=== PATIENT | male | born 1950 | race Caucasian/White ===

== ENCOUNTER 2018-05-21 05:54 | Day surgery (SDC) | payer OTHER, BC ==
[2018-05-21] MEDS ORDERED: NA CHLORIDE 0.9% 500 ML ONE (06:20)
[2018-05-21 06:29] LABS: Absolute Lymphocytes (CBC) 1.7 K/uL (0.7-4.9); Absolute Monocytes 0.5 K/uL (0.1-1.3); Absolute Neutrophil 3.3 K/uL (1.8-8.0); Basophils % 0.5 % (0-1.3); Eosinophils % 3.5 % (0-4.4); Hematocrit 43.5 % (39.6-49.0); Lymphocytes % 29.5 % (15.3-44.8); MCH 31.4 pg (27.0-35.0); MCV 89.9 fL (80-100); Monocytes % 8.1 % (3.3-12.3); RBC Red Blood Cell Count 4.84 M/uL (4.33-5.43)
[2018-05-21 06:35] LABS: Protime INR 1.64
[2018-05-21 06:42] LABS: Potassium 3.9 mmol/L (3.5-5.1)
[2018-05-21] MEDS ORDERED: MIDAZOLAM HCL 5 MG/5 ML INJ ONE (07:26)
--- NOTE | 2018-05-21 09:24 | RAD REPORT ---
EXAM DESCRIPTION: RAD - Chest Single View - 05/21/2018 6:45 am CLINICAL HISTORY: Coronary artery disease Chest pain. COMPARISON: No comparisons FINDINGS: Portable technique limits examination quality. The lungs are grossly clear. The heart is normal in size. No displaced fractures. IMPRESSION: No acute intrathoracic process suspected.
--- NOTE | 2018-05-21 12:49 | OP ---
Date of Procedure: 05/21/2018 Surgeon: Get Montero MD Procedure: Direct current cardioversion. Indication: Atrial fibrillation. History Of Present Illness: Mr. Dixon is a 67-year-old white male, has failed beta-blockers, has fa iled flecainide, has failed Bystolic for atrial fibrillation. Came in with recurrent atrial fibrilla tion with symptoms. He has been taking Xarelto 20 mg daily and metoprolol 25 mg daily. He was given a total of 8 mg of Versed for total sedation in the catheter builder. One shock of 100 joules converted him to normal rhythm. There were no complications or blood loss. Total conscious sedation was 30 minut es. Final Diagnosis: Successful cardioversion of atrial fibrillation to sinus rhythm. Operators: Get Montero M.D. Disposition: The patient will go home on Xarelto and Multaq 400 mg b.i.d. I will see him in the off ice in 2 weeks. The case was discussed with the family. STEPHAN/KOLE Voice ID: [id number] Report ID: [id number]
--- NOTE | 2018-05-21 16:29 | EKG ---
Test Date: 2018-05-21 Test Time: 07:41:58 Gas Controller: KARL MEASUREMENT RESULTS: Intervals: Rate: 65 WI: 172 QRSD: 122 QT: 442 QTc: 459 [place]: P: 31 WI: 172 QRS: -18 T: 2 INTERPRETIVE STATEMENTS: Normal sinus rhythm Right bundle branch block Abnormal ECG No previous ECG available for comparison Electronically Signed On 05-21-18 16:27:27 CDT by Get Montero
== END 2018-05-21 09:27 | disposition home or self-care (01) ==
LOC: CCL 05:54
PROC: 5A2204Z Restoration of Cardiac Rhythm, Single (ICD-10-PCS; principal; 2018-05-21)
DX: I48.91 Unspecified atrial fibrillation (principal); I45.10 Unspecified right bundle-branch block; I25.10 Atherosclerotic heart disease of native coronary artery without angina pectoris
CPT/HCPCS: 36415; 71045; 80048; 85025; 85610; 85730; 92960; 93005; J2250

== ENCOUNTER 2019-03-10 08:24 | Emergency (ER) | payer BC, OTHER ==
[2019-03-10 09:57] LABS: Absolute Lymphocytes (CBC) 1.1 K/uL (0.7-4.9); Absolute Monocytes 0.4 K/uL (0.1-1.3); Absolute Neutrophil 4.6 K/uL (1.8-8.0); Basophils % 0.2 % (0-1.3); Eosinophils % 1.4 % (0-4.4); Hematocrit 40.2 % (39.6-49.0); MPV 8.3 fL (7.6-11.3); Monocytes % 6.2 % (3.3-12.3); RBC Red Blood Cell Count 4.32 M/uL (4.33-5.43)
[2019-03-10] MEDS ORDERED: NA CHLORIDE 0.9% 1,000 ML ONE (10:05)
[2019-03-10 10:14] LABS: ALT/SGPT 24 U/L (12-78); AST/SGOT 20 U/L (15-37); Albumin 3.6 g/dL (3.4-5.0); Alkaline Phosphatase 73 U/L (45-117); BUN Blood Urea Nitrogen 15 mg/dL (7-18); Bicarbonate 29 mmol/L (21-32); Bilirubin Total 1.2 mg/dL (0.2-1.0); Glucose Level 94 mg/dL (74-106); Magnesium 2.2 mg/dL (1.8-2.4); Potassium 4.2 mmol/L (3.5-5.1); Protein, Total 6.2 g/dL (6.4-8.2); Sodium Level 142 mmol/L (136-145); Troponin (Emerg Dept Use Only) < 0.02 ng/mL (0.0-0.045)
--- NOTE | 2019-03-10 10:22 | RAD REPORT ---
EXAM DESCRIPTION: RAD - Chest Single View - 03/10/2019 10:17 am CLINICAL HISTORY: Cough, shortness of breath, dehydration, bradycardia COMPARISON: April 2018 TECHNIQUE: AP portable chest image was obtained 1014 hours . FINDINGS: Lungs are clear. Heart and vasculature are normal. No measurable pleural effusion and no p neumothorax. No acute bony abnormality seen. No acute aortic findings suspected. IMPRESSION: No acute cardiopulmonary process. No suspicious change from comparison.
[2019-03-10 10:48] LABS: Urine Blood NEGATIVE (NEG); Urine Glucose NEGATIVE (NEG); Urine Protein NEGATIVE (NEG); Urine Specific Gravity 1.015 (1.005-1.030); Urine pH 8.5 (5.0-7.0)
--- NOTE | 2019-03-10 14:05 | EKG ---
Test Date: 2019-03-10 Test Time: 08:50:04 [employer] MEASUREMENT RESULTS: Intervals: Rate: 44 MD: 194 QRSD: 132 QT: 546 QTc: 466 [place]: P: 63 MD: 194 QRS: -4 T: -9 INTERPRETIVE STATEMENTS: Marked sinus bradycardia Right bundle branch block Abnormal ECG Compared to ECG 05/21/2018 07:41:58 Sinus rhythm no longer present Electronically Signed On 03-10-19 14:04:48 CDT by Ervin Palomo
--- NOTE | 2019-03-10 15:23 | ER ---
Nurse's Notes [facility] Name: Rodri Dixon Age: 68 yrs Sex: Male : 1950 Arrival Date: 03/10/2019 Time: 08:27 Bed 5 Private MD: Diagnosis: Presentation: 03/10 08:41 Presenting complaint: Patient states: "I woke up this morning feeling a little ss disoriented, dizzy and nauseated. My pulse was down to 39. It is usually 44-45 bpm resting." Pt reports that symptoms have improved besides some mild nausea when repositioning. Pt has an appointment later today for his benzene worker to discuss a cardiac ablation for his afib. Transition of care: patient was not received from another setting of care. Onset of symptoms was March 10, 2019. Risk Assessment: Do you want to hurt yourself or someone else? Patient reports no desire to harm self or others. Initial Sepsis Screen: Does the patient meet any 2 criteria? No. Patient's initial sepsis screen is negative. Does the patient have a suspected source of infection? No. Patient's initial sepsis screen is negative. Care prior to arrival: None. 08:41 Method Of Arrival: Ambulatory ss 08:41 Acuity: WINTER 3 ss Triage Assessment: 08:41 General: Appears in no apparent distress. comfortable, Behavior is cooperative, bp appropriate for age, anxious. Pain: Denies pain. EENT: No deficits noted. Neuro: Reports dizziness. Cardiovascular: Rhythm is sinus bradycardia. Respiratory: Airway is patent Respiratory effort is even, unlabored, Respiratory pattern is regular, symmetrical. GI: No signs and/or symptoms were reported involving the gastrointestinal system. : No signs and/or symptoms were reported regarding the genitourinary system. Derm: No deficits noted. Musculoskeletal: Circulation, motion, and sensation intact. Range of motion:. Historical: - Allergies: 08:47 No Known Allergies; ss - PMHx: 08:47 Atrial Fib; High Cholesterol; ss - PSHx: 08:47 R shoulder repair; L knee repair; cardioversion (AFIB); ss - Immunization history:: Adult Immunizations up to date. - Social history:: Smoking status: Patient/guardian denies using tobacco. - Ebola Screening: : Patient denies exposure to infectious person Patient denies travel to an Ebola-affected area in the days before illness onset. Screenin:00 Abuse screen: Denies threats or abuse. Denies injuries from another. Nutritional bp screening: No deficits noted. Tuberculosis screening: No symptoms or risk factors identified. Fall Risk None identified. Assessment: 08:45 General: SEE TRIAGE NOTE. bp 11:00 Reassessment: ALL CURRENT ORDERS COMPLETED, PT CONTINUES TO BE SYMPTOMATICALLY bp BRADYCARDIC. 12:20 Reassessment: GRETEL C/S RESPONSE PENDING FOR ZOROASTRIANISM. bp 14:04 Reassessment: ZOROASTRIANISM TRANSFER IN PROCESS. PT REMAINS BRADYCARDIC. bp 15:19 Reassessment: PT LEFT AMA. PT URGED TO REMAIN BY MD AND STAFF, BUT REFUSED. PT URGED TO bp RETURN IF S/S WORSEN OR RETURN. PT LAST SEEN IN STABLE CONDITION, AOx4, AMBULATORY WITH STEADY GAIT. Vital Signs: 08:47 BP 137 / 73; Pulse 44; Resp 16; Temp 97.6(TE); Pulse Ox 100% on R/A; Weight 79.38 kg; ss Height 5 ft. 10 in. (177.80 cm); Pain 0/10; 11:09 BP 140 / 65; Pulse 46; Resp 16; Pulse Ox 100% ; bp 12:20 BP 117 / 65; Pulse 43; Resp 16; Pulse Ox 100% ; bp 14:03 BP 111 / 63; Pulse 54; Resp 16; Pulse Ox 100% ; bp 15:00 BP 118 / 60; Pulse 41; Resp 18; Pulse Ox 100% ; bp 08:47 Body Mass Index 25.11 (79.38 kg, 177.80 cm) ED Course: 08:27 Patient arrived in ED. mr 08:35 Alex Grant, RN is Primary Nurse. bp 08:46 Triage completed. ss 08:47 Arm band placed on right wrist. ss 08:54 EKG done, by principal technical writer. dt2 09:18 Rey Salinas MD is Attending Physician. ps1 09:45 Inserted saline lock: 20 gauge in right antecubital area, using aseptic technique. bp Blood collected. 10:00 Patient has correct armband on for positive identification. Placed in gown. Bed in low bp position. Call light in reach. Side rails up X2. Adult w/ patient. 10:18 CXR XRAY In Process Unspecified. EDMS 11:22 attempted transfer to [facility], pt was declined at this time for lack of capacity, per siddharth hernandez. Attempting to contact Dr Kelley at this time. 11:23 CBC with Diff Sent. bp 15:20 No provider procedures requiring assistance completed. IV discontinued, intact, bp bleeding controlled, No redness/swelling at site. Pressure dressing applied. Administered Medications: 09:45 Drug: NS 0.9% 1000 ml Route: IV; Rate: 1 bolus; Site: right antecubital; bp 11:09 Follow up: IV Status: Completed infusion; IV Intake: 1000ml bp Intake: 11:09 IV: 1000ml; Total: 1000ml. bp Outcome: 15:20 AMA AMA form signed bp 15:20 Condition: stable 15:22 Patient left the ED. bp Signatures: Dispatcher [employer] EDMS Sandra Robles Lexi Fermin mr PinkyBonny hayes, BENEDICT RN Alex Mercado RN RN bp Rey Salinas MD MD ps1 Teague, Danielle dt2
--- NOTE | 2019-03-10 15:24 | EDPHYS ---
Physician Documentation [facility] Name: Rodri Dixon Age: 68 yrs Sex: Male : 1950 Arrival Date: 03/10/2019 Time: 08:27 Bed 5 Private MD: ED Physician Rey Salinas HPI: 03/10 09:29 This 68 yrs old Male presents to ER via Ambulatory with complaints of near ps1 syncope. 09:29 patient states that he has hx of atrial fibrillation and on xarelto and metoprolol. He ps1 was recently started on Lasix for some trace leg swelling. He additionally has been working outside and sweating a lot. He states that he woke up this morning and felt unsteady and like he was going to pass out. His HR on evaluation was 45 in room. No FND. Historical: - Allergies: 08:47 No Known Allergies; ss - PMHx: 08:47 Atrial Fib; High Cholesterol; ss - PSHx: 08:47 R shoulder repair; L knee repair; cardioversion (AFIB); ss - Immunization history:: Adult Immunizations up to date. - Social history:: Smoking status: Patient/guardian denies using tobacco. - Ebola Screening: : Patient denies exposure to infectious person Patient denies travel to an Ebola-affected area in the 21 days before illness onset. ROS: 09:29 Constitutional: Negative for fever, chills, and weight loss, Eyes: Negative for injury, ps1 pain, redness, and discharge, ENT: Negative for injury, pain, and discharge, Respiratory: Negative for shortness of breath, cough, wheezing, and pleuritic chest pain, Abdomen/GI: Negative for abdominal pain, nausea, vomiting, diarrhea, and constipation, MS/Extremity: Negative for injury and deformity, Skin: Negative for injury, rash, and discoloration, Neuro: Negative for headache, weakness, numbness, tingling, and seizure. 09:29 Cardiovascular: Positive for near syncope and bradycardia. Exam: 09:29 Constitutional: This is a well developed, well nourished patient who is awake, alert, ps1 and in no acute distress. Head/Face: Normocephalic, atraumatic. Eyes: Pupils equal round and reactive to light, extra-ocular motions intact. Lids and lashes normal. Conjunctiva and sclera are non-icteric and not injected. Chest/axilla: Normal chest wall appearance and motion. Nontender with no deformity. No lesions are appreciated. Respiratory: Lungs have equal breath sounds bilaterally, clear to auscultation and percussion. No rales, rhonchi or wheezes noted. No increased work of breathing, no retractions or nasal flaring. Abdomen/GI: Soft, non-tender, with normal bowel sounds. No distension or tympany. No guarding or rebound. No evidence of tenderness throughout. Skin: Warm, dry with normal turgor. Normal color with no rashes, no lesions, and no evidence of cellulitis. Neuro: Awake and alert, GCS 15, oriented to person, place, time, and situation. Cranial nerves II-XII grossly intact. Sensory grossly intact. 09:29 Musculoskeletal/extremity: Extremities: grossly normal except: noted in the right calf: marked varicosities. No pain. Reports chronic. Trace edema. 09:33 Cardiovascular: Rate: bradycardic, Rhythm: regular, Pulses: no pulse deficits are ps1 appreciated. Vital Signs: 08:47 BP 137 / 73; Pulse 44; Resp 16; Temp 97.6(TE); Pulse Ox 100% on R/A; Weight 79.38 kg; ss Height 5 ft. 10 in. (177.80 cm); Pain 0/10; 11:09 BP 140 / 65; Pulse 46; Resp 16; Pulse Ox 100% ; bp 12:20 BP 117 / 65; Pulse 43; Resp 16; Pulse Ox 100% ; bp 14:03 BP 111 / 63; Pulse 54; Resp 16; Pulse Ox 100% ; bp 15:00 BP 118 / 60; Pulse 41; Resp 18; Pulse Ox 100% ; bp 08:47 Body Mass Index 25.11 (79.38 kg, 177.80 cm) ss MDM: 09:40 Patient medically screened. ps1 03/10 09:28 Order name: CBC with Diff ps1 03/10 09:28 Order name: Magnesium; Complete Time: 10:36 ps1 03/10 09:28 Order name: Troponin (emerg Dept Use Only); Complete Time: 10:36 ps1 03/10 09:28 Order name: CMP; Complete Time: 10:36 ps1 03/10 09:30 Order name: CBC with Automated Diff; Complete Time: 10:02 EDMS 0612 10:35 Order name: Urine Dipstick--Ancillary (enter results); Complete Time: 10:53 bd 03/10 08:54 Order name: EKG; Complete Time: 08:54 ss 03/10 08:54 Order name: EKG - Nurse/Tech; Complete Time: 08:56 ss 03/10 09:28 Order name: Cardiac monitoring; Complete Time: 09:34 ps1 03/10 09:28 Order name: IV Saline Lock; Complete Time: 09:55 ps1 03/10 09:28 Order name: Labs collected and sent; Complete Time: 09:56 ps1 03/10 09:28 Order name: NPO; Complete Time: 09:34 ps1 03/10 10:01 Order name: CXR XRAY; Complete Time: 10:36 ps1 03/10 09:28 Order name: O2 Per Protocol; Complete Time: 09:34 ps1 03/10 09:28 Order name: O2 Sat Monitoring; Complete Time: 09:34 ps1 03/10 09:28 Order name: Urine Dipstick-Ancillary (obtain specimen); Complete Time: 10:36 ps1 EC:50 Rate is 44 beats/min. Rhythm is regular. QRS [place] is Normal. ID interval is normal. QRS ps1 interval is prolonged. QT interval is normal. No Q waves. T waves are Normal. ST Segment is depressed in lead V1. Clinical impression: RBBB, Sinus Bradycardia, Non-specific ST changes. Administered Medications: 09:45 Drug: NS 0.9% 1000 ml Route: IV; Rate: 1 bolus; Site: right antecubital; bp 11:09 Follow up: IV Status: Completed infusion; IV Intake: 1000ml bp Disposition: 03/10/19 15:22 Patient has left against medical advice. - Patients states they are going to Home. - Condition is Stable. Signatures: Dispatcher [employer] [facility] Bonny Abdullahi RN RN ss Peltier, Brian, RN RN Rey Estes MD MD ps1
== END 2019-03-10 15:22 | disposition left against medical advice (07) ==
LOC: ER 08:24
DX: R55 Syncope and collapse (principal); R00.1 Bradycardia, unspecified; I48.91 Unspecified atrial fibrillation; E78.00 Pure hypercholesterolemia, unspecified; Z79.01 Long term (current) use of anticoagulants
CPT/HCPCS: 93005; 85025; 36415; 83735; 81003; 84484; 80053; 71045; 96360; 99284; J7030